=== PATIENT | female | born 1965 | race Caucasian/White ===

== ENCOUNTER 2022-10-27 12:29 | Outpatient (CLI) | payer SELFPAY ==
[2022-10-27 12:41] LABS: Hematocrit 48.2 % (35.0-49.0); Mean Corpuscular HGB Conc 33.2 g/dL (32.0-36.0); Mean Corpuscular Hemoglobin 31.3 pg (27.0-31.0); Mean Corpuscular Volume 94.1 fL (78.0-102.0); Mean Platelet Volume 8.7 fl (9.2-11.8); Platelet Count Result 255 K/mm3 (150-420); Red Blood Count 5.12 M/mm3 (4.20-5.40); White Blood Count 5.8 K/mm3 (4.8-10.8)
[2022-10-27 13:01] LABS: Alanine Aminotransferase 22 U/L (14-59); Albumin Level 3.9 g/dL (3.4-5.0); Alkaline Phosphatase 105 U/L (46-116); Anion Gap 8 mmol/L (8-16); Aspartate Amino Transferase 15 U/L (15-37); Bilirubin,Total 0.4 mg/dL (0.00-1.00); Blood Urea Nitrogen 11 mg/dL (7-18); Carbon Dioxide 28 mmol/L (21-32); Chloride 105 mmol/L (98-108); Cholesterol 159 mg/dL (0-200); Estimated Glomerular Filt Rate 51; Glucose 87 mg/dL (70-99); HDL Direct 43 mg/dL (40-60); LDL Cholesterol Calculated 100 mg/dL (<130); Osmolality Calculated 290 mOsm/kg (285-295); Potassium 3.9 mmol/L (3.5-5.1); Sodium 141 mmol/L (136-145); Total Protein 7.6 g/dL (6.4-8.2); Triglycerides 81 mg/dL (0-150); Troponin I 10.8 ng/L (0.00-60.4)
[2022-10-27 13:27] LABS: Creatine Kinase 252 U/L (26-192)
[2022-10-27 13:27] LABS: NT Pro B Type Natriuretic Pept 71 pg/mL (0-125)
== END 2022-10-27 12:30 | disposition home or self-care (01) ==
PROVIDERS: PCP Nurse Practitioner Family; Visit Provider Nurse Practitioner Family
DX: N18.4 Chronic kidney disease, stage 4 (severe) (principal); R07.9 Chest pain, unspecified
CPT/HCPCS: 36415; 80053; 80061; 82550; 83880; 84484; 85027